=== PATIENT | male | born 2000 | race African-American/Black ===

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

== ENCOUNTER 2021-05-11 16:05 | Emergency (ER) | payer MEDICAID ==
[~2021-05-11] VITALS: Ht 170.2 cm; Wt 89.0 kg
[2021-05-11 17:58] VITALS: BP 130/78
== END 2021-05-11 18:00 | disposition home or self-care (01) ==
LOC: ED 16:05
DX: M79.661 Pain in right lower leg (principal)